=== PATIENT | male | born 1950 | race African-American/Black ===

== ENCOUNTER 2021-06-22 08:51 | Emergency (ER) | payer MEDICARE, MEDICAID, SELFPAY ==
[2021-06-22] VITALS (14 sets, daily range): BP systolic 99–151; BP diastolic 60–78; PULSE 92–114; RESP 12–25; TEMP 36.9; O2SAT 95–99
--- NOTE | ~2021-06-22 | CT_ITS ---
EXAMINATION: CT abdomen pelvis w con EXAM DATE: 06/22/2021 11:12 INDICATION: ulcer in the penile/scrotal area eval for free air . TECHNIQUE: Spiral CT of the abdomen and pelvis was performed following intravenous injection of 100 m L Omnipaque 350. Axial, coronal and sagittal images of the abdomen and pelvis were reviewed. The do se-length product (DLP) for this examination was 661.95 mGy-cm. The exposure was tailored according to patient size (auto mA exposure control), and iterative reconstruction (ASIR) was used as additiona l dose reduction technique. There is no prior study for comparison. FINDINGS: The liver, spleen, adrenal glands and pancreas are unremarkable. Gallbladder is unremarkab le. No biliary obstruction. Portal and splenic veins are patent. Kidneys enhance symmetrically. T here is no hydronephrosis. There is moderate prostatomegaly, prostate measuring 6 cm transverse dimension. There is a Shin cath eter within a collapsed bladder. There is punctate focus of gas contiguous to the membranous portion of the urethra (axial image 165), could have been introduced from a small ulceration along the ventra l side of the penis scrotal junction. Along the left medial upper inner thigh there is an oval region measuring about 4.5 x 3.5 cm and 40 H [place] units with differential diagnosis including hematoma seroma, abscess, less likely lymph nod e given no pathologically enlarged lymph nodes identified in other locations. Shin catheter balloon in the bladder. Bladder is collapsed. There is no retroperitoneal or pelvic lymphadenopathy. The appendix is normal. The stomach and small bowel are unremarkable. There is stoma which appears to have side colostomy. No free intraperitoneal gas. The heart is normal in size. There are no p ericardial or pleural effusions. Right basilar subsegmental atelectasis. Moderate to severe left hip osteoarthritis. Possible early right hip avascular necrosis. There are no osteoblastic or osteolyti c lesions identified. There is a deep sacral decubitus ulcer. IMPRESSION: 1. Probable identification of penoscrotal junction ulceration, could extend to the urethra given foc us of gas identified contiguous to the Shin catheter. No suspicion of Adrian's gangrene at this t freda. 2. Left medial inner thigh abscess, hematoma seroma or less likely enlarged lymph node. 3. Deep decubitus ulceration. 4. Other chronic findings. Reviewed, dictated and finalized at location B. IMPRESSION: 1. Probable identification of penoscrotal junction ulceration, could extend to the urethra given focus of gas identified contiguous to the Shin catheter. N o suspicion of Adrian's gangrene at this time. 2. Left medial inner thigh abscess, hematoma seroma or less likely enlarged ly mph node. 3. Deep decubitus ulceration. 4. Other chronic findings.
[2021-06-22] MEDS: SODIUM CHLORIDE 0.9% IV 1,000 ML 999 ML IV CONT (10:07)
[2021-06-22 10:20] LABS: Basophils Absolute Auto 0.1 K/mm3 (0.0-0.1); Basophils Percent Auto 0.3 % (0.2-1.2); Eosinophils Percent Auto 0.1 % (0-4.4); Hematocrit 36.8 % (42.0-52.0); Hemoglobin 11.6 g/dL (14.0-18.0); Immature Granulocyte Absolute 0.14 K/mm3 (0.00-0.031); Immature Granulocyte Percent A 0.8 % (0-0.5); Lymphocytes Absolute Auto 1.22 K/mm3 (0.9-3.2); Lymphocytes Percent Auto 6.6 % (18.3-44.2); Mean Corpuscular HGB Conc 31.5 g/dl (32-36); Mean Corpuscular Hemoglobin 27.2 pg (26-34); Mean Corpuscular Volume 86.4 fl (80-100); Monocytes Absolute Auto 1.7 K/mm3 (0.1-0.6); Neutrophils Absolute Auto 15.4 K/mm3 (1.3-6.7); Neutrophils Percent Auto 83.2 % (45.5-73.1); Platelet Count Result 239 k/mm3 (150-375); Red Blood Count 4.26 M/mm3 (4.6-6.20); Red Cell Distribution Width 13.9 % (11.5-14.5); White Blood Count 18.5 K/mm3 (4.5-10.0)
[2021-06-22 10:25] LABS: INR 1.4; Prothrombin Time 16.9 Seconds (11.1-14.7)
[2021-06-22 10:26] LABS: Partial Thromboplastin Time 42.8 SECONDS (22.3-36.8)
[2021-06-22 10:35] LABS: Lactic Acid Reflex 2.5 mmol/L (0.7-2.1)
[2021-06-22 10:46] LABS: Add Urine Microscopic? YES; Appearance Urine Turbid (Clear); Bilirubin Urine Negative (Negative); Blood Urine 3+ (Negative); Color Urine Amber (Yellow); Glucose Urine UA Negative (Negative); Ketones Urine Negative (Negative); Leukocyte Esterase Ur 3+ LEU/UL (Negative); Mucus Urine Rare /lpf; Nitrate Urine Positive (Negative); Protein Urine 1+ mg/dL (Negative); RBC Urine >75 /hpf (0-2); Specific Grav Ur 1.015 (1.001-1.035); Urobilinogen Urine Negative mg/dL (<2.0); WBC Clumps Urine Present /HPF; WBC Urine >75 /hpf
[2021-06-22 10:49] LABS: Alanine Aminotransferase 24 U/L (4-50); Albumin Level 3.7 g/dL (3.5-5.1); Alkaline Phosphatase 118 U/L (38-126); Anion Gap 9 mmol/L (8-16); Aspartate Amino Transferase 29 U/L (17-59); Blood Urea Nitrogen 28 mg/dL (9-20); Calcium 9.1 mg/dL (8.4-10.2); Carbon Dioxide 27 mmol/L (22-30); Chloride 106 mmol/L (98-107); Estimated CRCL calculation 52 ml/min; Estimated Glomerular Filt Rate > 60; Glucose 126 mg/dL (65-110); Potassium 4.1 mmol/L (3.4-5.0); Sodium 142 mmol/L (137-145)
--- NOTE | 2021-06-22 12:37 | ED.MALEGU ---
HPI - Male Genitourinary General Chief complaint: Urogenital-Male <Aman Gallegos MD - Last Filed: 06/23/21 06:59> Stated complaint: blood at urinary cath site <Aman Gallegos MD - Last Filed: 06/23/21 06:59> Time Seen by Provider: 06/22/21 09:09 <Aman Gallegos MD - Last Filed: 06/23/21 06:59> History of Present Illness HPI Narrative: Patient presents with blood in his area. Patient is at a nursing facility where during a fall evaluation they noted dried blood and some of the ER for evaluation. Patient reports pain to his area denies fevers nausea or vomiting. Denies any lightheadedness overall reports he just feels a little fatigued. <Aman Gallegos MD - Last Filed: 06/23/21 06:59> Related Data Allergies/Adverse reactions: Allergies Allergy/AdvReac Type Severity Reaction Status Date / Time No Known Allergies Allergy Verified 06/22/21 09:04 <Aman Gallegos MD - Last Filed: 06/23/21 06:59> Review of Systems Review of Systems: CONSTITUTIONAL: Denies fever, chills, or sweats. EYES: Denies visual changes, redness, or discharge. ENT: Denies rhinorrhea, congestion, sore throat, or otalgia. CARDIOVASCULAR: Denies chest pain, palpitations, or edema. RESPIRATORY: Denies cough or dyspnea. GASTROINTESTINAL: Denies abdominal pain, nausea, vomiting, or diarrhea. GENITOURINARY: Denies dysuria or hematuria. SKIN: Denies rash or itching. MUSCULOSKELETAL: Denies back pain, joint pain, or myalgia. NEUROLOGIC: Denies headache, numbness, dizziness, or weakness. PSYCHIATRIC: Denies anxiety or depression. <Aman Gallegos MD - Last Filed: 06/23/21 06:59> All systems reviewed & are unremarkable except as noted in HPI and below <Aman Gallegos MD - Last Filed: 06/23/21 06:59> Exam Narrative: GENERAL: Well-appearing, well-nourished, and in no acute distress. HEAD: Normocephalic, atraumatic. EYES: PERRLA and EOMI. ENT: Nares clear, no rhinorrhea or epistaxis. Mucous membranes moist. ABDOMEN: Soft, nontender, nondistended, normal active bowel sounds. : Patient with diffuse pain in the area multiple various stage ulcers largest on the penile scrotal juncture EXTREMITIES: Normal range of motion. No edema. SKIN: Warm, dry, no rash. NEURO: No focal deficits. Alert and oriented x3. PSYCH: Normal mood and affect. <Aman Gallegos MD - Last Filed: 06/23/21 06:59> Course Course Emergency Course: Patient was brought to the emergency room for bleeding around his Shin catheter his exam showed ulcers which is suggestive of fistula given his diffuse tenderness in the area exam findings labs and imaging obtained. Patient was noted to have a leukocytosis of 18 imaging reported concerns for abscess. There is no significant erythema unable to palpate the focal fluid collection on exam. Discussed case with urology and general surgery. 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 Urology evaluated the patient felt patient has a chance urethral fistula and a separate abscess and does not require emergent urological surgery. Case discussed with [facility] felt based on description this could be managed at our facility. Case discussed with hospitalist given urology does not feel he requires surgical intervention in general surgery feels his exam finding requires complex surgery for concern of Adrian's which will not be able to accommodate at this facility hospitalist team was uncomfortable admitting the patient as general surgery would not follow along with recommendations. [facility] did accept the patient for transfer urology following along with Dr. Mays the hospitalist who accepted for transfer is Dr. Bar.U report patient will have a multiday wait prior to transfer. Given patient's leukocytosis persistent tachycardia and fluid collection in thigh disposition home is an unsafe option. Patient had a protracted
[2021-06-22] MEDS: SODIUM CHLORIDE 0.9% IV 500 ML 999 ML IV CONT (13:05)
[2021-06-22 13:11] LABS: Reflex Lactic Acid Yes or No Add Lactic
[2021-06-22 13:45] LABS: Lactic Acid 1.2 mmol/L (0.7-2.1)
[2021-06-22] MEDS: MORPHINE SULFATE (*CRX) 4 MG/ML INJ IV PUSH ×2 (14:28→19:36)
[2021-06-22] MEDS: ONDANSETRON INJ 4 MG/2 ML VIAL IV PUSH (14:28)
--- NOTE | 2021-06-22 14:39 | PM.CNGS ---
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 Discussed with urologist, Dr. Valadez (2) Infection of penis: Code(s): N48.29 - Other inflammatory disorders of penis Status: Acute Assessment and Plan: blackened ulcer with leukocytosis and associated abscess of the thigh. Discussed with urology and ER physician. Recommend transfer unless urology feels that this is a problem they can manage. (3) Presence of indwelling urinary catheter: Code(s): Z96.0 - Presence of urogenital implants Status: Chronic (4) Degenerative arthritis of hip: Qualifiers: Osteoarthritis type: unspecified Laterality: bilateral Qualified Code(s): M16.0 - Bilateral primary osteoarthritis of hip Code(s): M16.9 - Osteoarthritis of hip, unspecified Status: Acute Assessment and Plan: severe degenerative changes of both hips noted on CT scan especially on the right. Patient nonambulatory. I expect this is the reason that it is so painful to move his legs. Etiology of this is unclear. (5) Memory impairment: Code(s): R41.3 - Other amnesia Status: Acute Assessment and Plan: Patient unable to relate any relevant history regarding his recent or longstanding problems. History of Present Illness Consult details Consult date: 06/22/21 Requesting physician: Aman Gallegos MD Narrative: Patient seen in the emergency room. He is a 70-year-old man who resides at [facility]. While he is able to verbalize well, he really has no good memory of his current condition or his past medical history at all. He was brought to the emergency room for some bloody drainage noted associated with his catheter and penis. He was also noted to have a lot of pain when trying to move either of his legs. He does take chronic narcotics at the half-way and does not walk. CT scan of the abdomen and pelvis was noted to show a proximal inner left thigh abscess. I was asked to see the patient regarding this abscess and possible admission. Patient has pain in both legs especially with movement but no increased pain on either the right or the left side. There was no evidence of fever on the nursing reports. He does have an 18,500 white count on labs done in the emergency room. Review of Systems Review of Systems: ROS unobtainable: Yes unobtainable due to mental status Meds Home Medications and Allergies Allergies Allergy/AdvReac Type Severity Reaction Status Date / Time No Known Allergies Allergy Verified 06/22/21 09:04 Vital Signs Vital Signs - 24 hr 06/22/21 08:50 06/22/21 11:12 06/22/21 12:29 Temperature 36.9 C Pulse Rate 114 H 109 H 102 H Respiratory Rate 21 H 25 H 22 H Blood Pressure 151/77 H 131/77 119/72 Pulse Oximetry 98 96 97 06/22/21 13:31 06/22/21 14:12 Temperature Pulse Rate 106 H 106 H Respiratory Rate 23 H 22 H Blood Pressure 139/78 121/76 Pulse Oximetry 99 98 Exam Const: General: cooperative, comfortable, no acute distress, alert and awake Nutritional Appearance: well nourished and thin : Penis: Yes circumcised, Yes ulceration ( black and ulcer left with granulation tissue) and Yes other ( Blackened ulcer left posterolateral aspect of penile shaft.) Urinary Catheter: Urinary Catheter: patent and draining and urine cloudy Skin: Wounds: wounds noted ( see penile shaft exam above) Extrem: Right lower extremity: ankle ( contractures of the foot and ankle); ROM limited ( very painful to move) Left lower extremity: hip/thigh ( no palpable abscess proximal inner left thigh, no erythema or swelling) and ankle ( contractures of the foot and ankle); abnormal ROM ( very painful to move) Results Labs Result diagrams:
--- NOTE | 2021-06-22 17:02 | WPDURCON ---
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 There is no gross purulence in the area. I was able to probe the area. I could feel several cm of Shin catheter. I could feel no connection to this thigh abnormality. Review of the CT scan also makes it looks somewhat remote to this area. Clinically this fluid collection in the thigh does not seem to be an abscess. There is no redness of the overlying skin. There is no tenderness to the overlying skin. The area is also not palpable. I pushed on the area where this fluid collection is and signs no drainage of any fluid or purulence from his perineal wound. He is going to be admitted to the medicine service due to his elevated white count and placed on antibiotics. At this time I do not see an acute need for surgical intervention. I would ask that his blood thinners be held just in case something else develops. Ultimately he will require a suprapubic catheter to manage his urethrocutaneous fistula. I do not think he is in the proper shape for a reconstructive procedure and his lower extremity immobility would make this very difficult. (2) Abdominal fluid collection: Code(s): R18.8 - Other ascites Status: Acute Assessment and Plan: Dr. Ramirez has seen this patient. This area may require exploration if he does not clinically improve. I do not see a clear communication to his urethrocutaneous fistula. Urology Consult Note HPI Date Seen: 06/22/21 Primary Care Provider: Benito Marlow, Consult Narrative Narrative: Kumar Bentley is a 70 year old male who was brought in from his rehab facility. He has been living there for the last year trying to get stronger and walk again. He has significant leg and hip pain. He has had indwelling Shin catheter for the last year due to immobility. [facility] because they noted blood coming from the perineal area. He was found to have a elevated white count in the emergency room. He was found to have an abnormal urinalysis which could be colonization. His Shin catheter was changed and is draining well. A CT scan shows abnormalities consistent with a fluid collection in the left proximal thigh as well as urethral abnormality which on exam is a controlled urethral cutaneous fistula. There is no sign of any purulence in the area. I probed the area. I could clearly feel several cm of Shin catheter through open draining perineal wound. I probed with my finger and could feel no communication to this fluid collection in the upper left thigh. This is not palpable on exam. There is no redness or fluctuance in the area. There is no drainage from the thigh. It is not any more tender than his legs in general. Review of Systems Review of Systems: Difficult to obtain a review of systems. He is a poor historian. He does not give much information about his health history. [facility] Comments Most of this is unobtainable. He lives in a rehab facility Meds Home Medications and Allergies Allergies Allergy/AdvReac Type Severity Reaction Status Date / Time No Known Allergies Allergy Verified 06/22/21 09:04 Vital Signs Vital Signs - 24 hr 06/22/21 08:50 06/22/21 11:12 06/22/21 12:29 Temperature 98.5 F Pulse Rate 114 H 109 H 102 H Respiratory Rate 21 H 25 H 22 H Blood Pressure 151/77 H 131/77 119/72 Pulse Oximetry 98 96 97 06/22/21 13:31 06/22/21 14:12 06/22/21 15:18 Temperature Pulse Rate 106 H 106 H 106 H Respiratory Rate 23 H 22 H 17 Blood Pressure 139/78 121/76 108/62 Pulse Oximetry 99 98 95 06/22/21 16:18 Temperature Pulse Rate 101 H Respiratory Rate 16 Blood Pressure 107/61 Pulse Oximetry 96 Exam Const: General: no acute distress Nutritional Appearance: average body habitus HENMT: He
--- NOTE | 2021-06-22 19:01 | PC.NURSE ---
Patient's sister calledLAURENCE. [phone] Cell
[2021-06-22 19:35] LABS: Basophils Absolute Auto 0.1 K/mm3 (0.0-0.1); Basophils Percent Auto 0.3 % (0.2-1.2); Eosinophils Percent Auto 0.1 % (0-4.4); Hematocrit 33.5 % (42.0-52.0); Hemoglobin 10.6 g/dL (14.0-18.0); Immature Granulocyte Absolute 0.18 K/mm3 (0.00-0.031); Lymphocytes Absolute Auto 1.71 K/mm3 (0.9-3.2); Lymphocytes Percent Auto 9.4 % (18.3-44.2); Mean Corpuscular HGB Conc 31.6 g/dl (32-36); Mean Corpuscular Volume 85.2 fl (80-100); Mean Platelet Volume 8.4 fl (7.4-10.4); Monocytes Absolute Auto 1.7 K/mm3 (0.1-0.6); Monocytes Percent Auto 9.5 % (2.6-8.5); Neutrophils Absolute Auto 14.5 K/mm3 (1.3-6.7); Neutrophils Percent Auto 79.7 % (45.5-73.1); Platelet Count Result 206 k/mm3 (150-375); Red Blood Count 3.93 M/mm3 (4.6-6.20); Red Cell Distribution Width 13.7 % (11.5-14.5); White Blood Count 18.1 K/mm3 (4.5-10.0)
--- NOTE | 2021-06-22 22:47 | PC.NURSE ---
Updated pt sister, Marquita, per pt request.
== END 2021-06-22 22:35 | disposition short-term general hospital (02) ==
PROVIDERS: Emergency Provider Emergency Medicine; PCP Internal Medicine
DX: N48.5 Ulcer of penis (principal); N48.29 Other inflammatory disorders of penis; N36.0 Urethral fistula; R18.8 Other ascites; R41.3 Other amnesia; R00.0 Tachycardia, unspecified; D72.829 Elevated white blood cell count, unspecified; M16.0 Bilateral primary osteoarthritis of hip; Z96.0 Presence of urogenital implants
CPT/HCPCS: 36415; 51702; 74177; 80053; 81001; 83605; 85025; 85610; 85730; 86140; 87040; 87077; 87086; 87186; 96361; 96365; 96375; 96376; 99285; J0692; J2270; J2405; J7030; J7040; Q9967

== ENCOUNTER 2022-01-29 20:25 | Emergency (ER) | payer MEDICARE, MEDICAID, SELFPAY ==
[2022-01-29] VITALS (17 sets, daily range): BP systolic 151–169; BP diastolic 99–112; PULSE 81–96; RESP 12–24; TEMP 37.3; O2SAT 92–98
--- NOTE | ~2022-01-29 | XR_ITS ---
EXAMINATION: XR ankle RT 2V, XR foot RT min 3V DATE: 01/29/2022 23:53 INDICATION: Right foot and ankle pain and swelling TECHNIQUE: 1. Anteroposterior and lateral view of the right ankle were obtained. 2. Dorsoplantar, two oblique and lateral views of the right foot were obtained. COMPARISON: None. FINDINGS: Hallux valgus. Alignment of the right foot and ankle is otherwise normal. There is prominent diffuse osteopenia with periarticular predominance. This decreases sensitivity for nondisplaced fracture. No fracture identified. Mild osteoarthritis characterized by nonuniform joint space narrowing at the fir st metatarsophalangeal and several tarsal metatarsal and interphalangeal joints. Suggestion of some j oint space widening at the fourth metatarsophalangeal joint where there is more severe osteopenia wit h in places indiscernible cortices which raises some concern for septic arthritis and osteomyelitis. Small plantar calcaneal spur. No ankle joint effusion. Diffuse soft tissue swelling most prominent ov er the dorsum of the foot. IMPRESSION: 1. Suggestion of some joint space widening and potential osteolysis at the fourth metatarsophalangeal joint raising concern for septic arthritis and osteomyelitis. 2. Prominent diffuse osteopenia most prominent in the subarticular bones which could be seen with chr onic inflammation/hyperemia. Reviewed, dictated and finalized at location A. IMPRESSION: 1. Suggestion of some joint space widening and potential osteolysis at the four th metatarsophalangeal joint raising concern for septic arthritis and osteomyel itis. 2. Prominent diffuse osteopenia most prominent in the subarticular bones which could be seen with chronic inflammation/hyperemia.
--- NOTE | ~2022-01-29 | XR_ITS ---
EXAMINATION: XR chest 1V portable Exam Date/Time: 01/29/2022 21:00 CDT CLINICAL HISTORY: SHEILA LOWER EXT AND ABD EDEMA, SOB Comparison: None available. RESULT: Lines, tubes, and devices: None. Lungs and pleura: Clear. Cardiomediastinal silhouette: Normal cardiomediastinal silhouette. Other: No acute osseous or upper abdominal finding. IMPRESSION: No acute cardiopulmonary process Reviewed, dictated and finalized at location K.
--- NOTE | ~2022-01-29 | CT_ITS ---
EXAMINATION: CTA chest PE protocol DATE: 01/30/2022 00:53 INDICATION: Shortness of breath, lower limb swelling and elevated d-dimer. TECHNIQUE: Computed tomography (CT) pulmonary angiogram of the chest was performed with 100 mL Omnipa que-350 intravenous contrast. Additional 3D reconstructions utilizing coronal maximum intensity proje ction (MIP) were performed. Automated exposure control and iterative reconstruction technique were em ployed. The dose-length product was 1000.98 mGy-cm. COMPARISON: None FINDINGS: Good contrast opacification of the pulmonary arteries. There is mild streak artifact from dense contr ast in the superior vena cava and right atrium. Mild scattered respiratory motion artifact which only mildly decreases sensitivity in some of the smaller subsegmental pulmonary arteries. No pulmonary em bolism. Mild atelectasis in the right lower lobe. No pneumonia, pulmonary edema, pleural effusion or pneumothorax. Heart size is normal. No pericardial effusion. Thoracic aorta is normal in caliber with no dissection. No pathologically enlarged thoracic lymphadenopathy. Small sliding-type hiatal hernia . Severe thoracic spondylosis. IMPRESSION: 1. No pulmonary embolism. 2. Mild atelectasis in the right lower lobe. 3. Small sliding-type hiatal hernia. Reviewed, dictated and finalized at location A.
--- NOTE | 2022-01-29 20:55 | ECG_ITS ---
Measurements Intervals [place] Rate: 86 P: 56 [place]: 136 QRS: 24 QRSD: 101 T: 89 QT: 331 QTc: 397 Interpretive Statements SINUS RHYTHM BORDERLINE T WAVE ABNORMALITY- DIFFUSE LEADS BASELINE ARTIFACT- I, III, V1 BORDERLINE ECG Electronically Signed On 01-30-2022 7:04:54 CDT by Seferino Esparza D.O.
--- NOTE | 2022-01-29 20:58 | ED.GENADULT ---
HPI - General Adult General Chief complaint: Extremity Problem,Nontraumatic <Mendy Knight PA-C - Last Filed: 01/30/22 03:54> Stated complaint: EDEMA BILTERAL LEGS AND ABD <Mendy Knight PA-C - Last Filed: 01/30/22 03:54> Time Seen by Provider: 01/29/22 20:32 <KATHY Marr Last Filed: 01/30/22 03:54> Source: patient and old records reviewed <KATHY Marr Last Filed: 01/30/22 03:54> Mode of arrival: EMS <KATHY Marr Last Filed: 01/30/22 03:54> Limitations: no limitations <Mendy Knight PA-C - Last Filed: 01/30/22 03:54> History of Present Illness HPI narrative: Patient is a 71-year-old male who presents the ED via EMS with report of lower extremity swelling. Patient is a resident of [facility] since last March after he was admitted for sepsis and had abdominal surgery with a colostomy bag placed. He is wheelchair bound but is currently receiving rehabilitation therapy. He reports having increased swelling in his lower extremities for the past several months. He saw the physician at the facility last week who discussed starting patient on diuretics however he was never started on these. The swelling seems to be worse in his R foot. He states the [facility] saw his swelling tonight and decided to send him to the ED. Patient also reports having pain in his right foot and ankle for the past several months, denies any pain in left lower extremity. Denies any recent injury or fall. Denies any recent worsening of pain or swelling according to him. Patient also reports having occasional shortness of breath with exertion, like after he finishes his therapy, and with laying flat when they change his Depends, but denies any chest pain, fever, chills, abdominal pain, nausea, vomiting. Patient has Hx of atrial fibrillation and is on Eliquis. <Mendy Knight PA-C - Last Filed: 01/30/22 03:54> Related Data Allergies/adverse reactions: Allergies Allergy/AdvReac Type Severity Reaction Status Date / Time No Known Allergies Allergy Verified 06/22/21 09:04 <Mendy Knight PA-C - Last Filed: 01/30/22 03:54> Review of Systems Review of Systems: CONSTITUTIONAL: Denies fever, chills. CARDIOVASCULAR: Reports orthopnea, BLE edema. Denies chest pain, palpitations. RESPIRATORY: Reports ROGERS. Denies cough. GASTROINTESTINAL: Denies abdominal pain, nausea, vomiting. SKIN: Denies wounds in R foot. MUSCULOSKELETAL: Reports pain in right foot/ankle. Denies LLE pain, back pain, joint pain, or myalgia. NEUROLOGIC: Denies headache, numbness, or weakness. 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 HEAD: Normocephalic, atraumatic. EYES: PERRL/EOMI, conjunctivae clear bilaterally. NOSE: Normal, no drainage NECK: Supple. No adenopathy, no masses. RESPIRATORY: Airway patent, respirations nonlabored. Clear to auscultation bilaterally, no wheezing. CARDIOVASCULAR: Regular rate and rhythm without murmurs, rubs, or gallops. DP and PT
[2022-01-29 22:11] LABS: Basophils Percent Auto 0.5 % (0.2-1.2); Eosinophils Absolute Auto 0.2 K/mm3 (0-0.3); Hematocrit 41.3 % (42.0-52.0); Hemoglobin 13.3 g/dL (14.0-18.0); Immature Granulocyte Absolute 0.02 K/mm3 (0.00-0.031); Immature Granulocyte Percent A 0.3 % (0-0.5); Lymphocytes Absolute Auto 2.11 K/mm3 (0.9-3.2); Mean Corpuscular HGB Conc 32.2 g/dl (32-36); Mean Corpuscular Hemoglobin 27.3 pg (26-34); Mean Corpuscular Volume 84.6 fl (80-100); Mean Platelet Volume 9.2 fl (7.4-10.4); Monocytes Absolute Auto 0.5 K/mm3 (0.1-0.6); Monocytes Percent Auto 8.8 % (2.6-8.5); Neutrophils Absolute Auto 3.1 K/mm3 (1.3-6.7); Neutrophils Percent Auto 51.4 % (45.5-73.1); Platelet Count Result 191 k/mm3 (150-375); Red Blood Count 4.88 M/mm3 (4.6-6.20); Red Cell Distribution Width 12.6 % (11.5-14.5)
[2022-01-29 22:21] LABS: Alanine Aminotransferase 45 U/L (4-50); Albumin Level 4.1 g/dL (3.5-5.1); Alkaline Phosphatase 153 U/L (38-126); Anion Gap 7 mmol/L (8-16); Aspartate Amino Transferase 64 U/L (17-59); Bilirubin,Total 0.4 mg/dL (0.2-1.3); Blood Urea Nitrogen 23 mg/dL (9-20); Calcium 8.7 mg/dL (8.4-10.2); Carbon Dioxide 23 mmol/L (22-30); Chloride 108 mmol/L (98-107); Estimated CRCL calculation 71 ml/min; Estimated Glomerular Filt Rate > 60; Glucose 115 mg/dL (65-110); Potassium 4.1 mmol/L (3.4-5.0); Sodium 138 mmol/L (137-145)
[2022-01-29 22:29] LABS: NT Pro B Type Natriuretic Pept 67 pg/mL (5-100)
[2022-01-29 22:33] LABS: Troponin I < 0.012 ng/mL (0.000-0.034)
[2022-01-29 22:43] LABS: INR 1.2; Prothrombin Time 14.7 Seconds (11.1-14.7)
[2022-01-29 22:44] LABS: Partial Thromboplastin Time 34.5 SECONDS (22.3-36.8)
[2022-01-29 22:45] LABS: SARS-CoV-2 RNA PCR Negative
[2022-01-30] VITALS (22 sets, daily range): BP systolic 135–161; BP diastolic 85–106; PULSE 78–93; RESP 14–24; O2SAT 92–99
[2022-01-30 00:11] LABS: D Dimer 0.73 ug/mL (<0.48)
[2022-01-30 02:04] LABS: Troponin I < 0.012 ng/mL (0.000-0.034)
--- NOTE | 2022-01-30 02:50 | PC.NURSE ---
0227- Ruth LIRA from [facility] called to f/u on pt status, informed that pt was still in the ER, original testing looked ok and scan and new labs ordered, waiting for results at this time.
[2022-01-30 02:54] LABS: Erythrocyte Sedimentation Rate 64 mm/hr (0-20)
== END 2022-01-30 04:17 ==
PROVIDERS: Physician Assistant; Emergency Provider Emergency Medicine; PCP Internal Medicine
DX: R60.0 Localized edema (principal); Z20.822 Contact with and (suspected) exposure to COVID-19; I48.91 Unspecified atrial fibrillation; K21.9 Gastro-esophageal reflux disease without esophagitis; I10 Essential (primary) hypertension; D50.9 Iron deficiency anemia, unspecified; Z79.01 Long term (current) use of anticoagulants; R94.31 Abnormal electrocardiogram [ECG] [EKG]; K44.9 Diaphragmatic hernia without obstruction or gangrene; Z93.3 Colostomy status; R06.02 Shortness of breath
CPT/HCPCS: 36415; 71045; 71275; 73600; 73630; 80053; 83880; 84484; 85025; 85380; 85610; 85652; 85730; 86140; 93005; 96365; 99284; C9803; J0131; Q9967; U0003; U0005